=== PATIENT | female | born 1975 | race Caucasian/White ===

== ENCOUNTER 2017-01-17 11:18 | Inpatient (IN) | payer SELFPAY ==
[~2017-01-17] VITALS: Ht 175.3 cm; Wt 73.9 kg
[2017-01-17] MEDS ORDERED: SODIUM CHLORIDE 0.9% 1,000 ML IV ONE (11:44)
[2017-01-17] MEDS ORDERED: CLINDAMYCIN 600MG IV 50 ML IV ONE (11:45)
[2017-01-17] MEDS ORDERED: KETOROLAC TROMETH 30 MG/ML 1ML VIAL IV ONE (11:45)
[2017-01-17 12:20] LABS: Basophils # (auto) 0 uL; Basophils % (auto) 0.6 % (0.0-2.0); Eosinophils # (auto) 0.3 uL; Eosinophils % (auto) 4.1 % (0.0-7.0); Hematocrit 36.9 % (36.0-46.0); Hemoglobin 12.1 g/dL (12.2-16.2); Lymphocytes # (auto) 1.4 uL; Lymphocytes % (auto) 18.4 % (10.0-50.0); Mean Corpuscular Hgb Conc. 32.6 g/dL (32.0-36.0); Mean Corpuscular Volume 85.8 fL (80.0-100.0); Mean Platelet Volume 9.4 fL (7.4-10.4); Monocytes # (auto) 0.5 uL; Neutrophils # (auto) 5.2 uL; Neutrophils % (auto) 69.9 % (37.0-80.0); Platelet Count (auto) 298 10^3/uL (140-450); White Blood Cell 7.4 10^3/uL (4.4-10.8)
[2017-01-17 12:40] LABS: Alkaline Phosphatase 74 U/L (45-117); Anion Gap 12 (5-15); Aspartate Aminotransferase 15 U/L (15-37); BUN/Creatinine Ratio 13.4; Bilirubin, Total < 0.1 mg/dL (0.2-1.0); Blood Urea Nitrogen 11 mg/dL (7-18); Calcium 8.6 mg/dL (8.5-10.1); Carbon Dioxide 27 mmol/L (21-32); Chloride 103 mmol/L (98-107); GFR African American 98 mL/min; GFR Non-African American 81 mL/min; Glucose 104 mg/dL (74-106); Magnesium 2.3 mg/dL (1.6-2.6); Potassium 3.7 mmol/L (3.5-5.1); Sodium 142 mmol/L (136-145); Total Protein 7.2 g/dL (6.4-8.2)
[2017-01-17] MEDS: SODIUM CHLORIDE 0.9% 1,000 ML IV SCH ×2 (13:53→19:33)
[2017-01-17] MEDS ORDERED: LACTULOSE 20Gm/30ML SOLN PO PRN (14:00)
[2017-01-17] MEDS ORDERED: ACETAMINOPHEN 500 MG TAB PO PRN (14:00)
[2017-01-17] MEDS: CLINDAMYCIN 600MG IV 50 ML IV SCH ×2 (14:00→19:32)
[2017-01-17] MEDS ORDERED: PROMETHAZINE HCL 25 MG/ML 1ML IV PRN (14:00)
[2017-01-17] MEDS ORDERED: TEMAZEPAM 15 MG CAP PO PRN (14:00)
[2017-01-17] MEDS ORDERED: LORazepam 0.5 MG TAB PO PRN (14:00)
[2017-01-17] MEDS ORDERED: cefTRIAXone 1GM/50ML D5W 50 ML IV ONE (14:30)
[2017-01-17] MEDS ORDERED: ENOXAPARIN SOD 40 MG/0.4 ML SYRINGE SC ONE (14:30)
[2017-01-17] MEDS: HYDROcodone-ACET 5/325MG TAB PO PRN (18:32)
[2017-01-17 22:07] VITALS: BP 113/59
[2017-01-18] VITALS (7 sets, daily range): BP systolic 87–98; BP diastolic 41–60
[2017-01-18] MEDS: HYDROcodone-ACET 5/325MG TAB PO PRN ×3 (04:41→22:07)
[2017-01-18] MEDS: CLINDAMYCIN 600MG IV 50 ML IV SCH ×3 (04:41→22:04)
[2017-01-18 07:23] LABS: Basophils # (auto) 0 uL; Basophils % (auto) 0.7 % (0.0-2.0); Eosinophils # (auto) 0.3 uL; Eosinophils % (auto) 4.9 % (0.0-7.0); Hematocrit 32.2 % (36.0-46.0); Hemoglobin 10.2 g/dL (12.2-16.2); Lymphocytes # (auto) 1.9 uL; Lymphocytes % (auto) 27.4 % (10.0-50.0); Mean Corpuscular Hemoglobin 27.6 pg (28.0-32.0); Mean Corpuscular Hgb Conc. 31.8 g/dL (32.0-36.0); Mean Corpuscular Volume 86.9 fL (80.0-100.0); Mean Platelet Volume 9.1 fL (7.4-10.4); Monocytes # (auto) 0.7 uL; Neutrophils # (auto) 3.9 uL; Platelet Count (auto) 248 10^3/uL (140-450); Red Cell Distribution Width 15.7 % (11.6-16.0); White Blood Cell 6.8 10^3/uL (4.4-10.8)
[2017-01-18] MEDS ORDERED: cefTRIAXone 1GM/50ML D5W 50 ML IV SCH (09:00)
[2017-01-18] MEDS: cefTRIAXone 1GM/50ML D5W 50 ML IV SCH (09:29)
[2017-01-18] MEDS: SODIUM CHLORIDE 0.9% 1,000 ML IV SCH ×3 (09:29→20:33)
[2017-01-18] MEDS: ENOXAPARIN SOD 40 MG/0.4 ML SYRINGE SC SCH (09:30)
[2017-01-18] MEDS ORDERED: SODIUM CHLORIDE 0.9% 1,000 ML IV ONE (11:45)
[2017-01-18 12:51] LABS: INR 0.97 (0.9-1.15)
[2017-01-18] MEDS: MORPHINE SULF INJ 2 MG/ML SYRINGE 1ML IV PRN ×2 (13:02→18:27)
[2017-01-19] VITALS (7 sets, daily range): BP systolic 76–143; BP diastolic 43–70
[2017-01-19] MEDS: SODIUM CHLORIDE 0.9% 1,000 ML IV SCH ×4 (03:13→23:20)
[2017-01-19] MEDS: MORPHINE SULF INJ 2 MG/ML SYRINGE 1ML IV PRN ×2 (05:00→16:26)
[2017-01-19] MEDS: CLINDAMYCIN 600MG IV 50 ML IV SCH (05:40)
[2017-01-19 05:52] LABS: Basophils # (auto) 0 uL; Basophils % (auto) 0.8 % (0.0-2.0); Eosinophils # (auto) 0.3 uL; Eosinophils % (auto) 5.6 % (0.0-7.0); Hematocrit 33.2 % (36.0-46.0); Hemoglobin 10.5 g/dL (12.2-16.2); Lymphocytes # (auto) 2.3 uL; Lymphocytes % (auto) 36.5 % (10.0-50.0); Mean Corpuscular Hemoglobin 27.5 pg (28.0-32.0); Mean Corpuscular Hgb Conc. 31.8 g/dL (32.0-36.0); Mean Corpuscular Volume 86.6 fL (80.0-100.0); Mean Platelet Volume 9.1 fL (7.4-10.4); Monocytes # (auto) 0.7 uL; Monocytes % (auto) 10.7 % (0.0-12.0); Neutrophils # (auto) 2.9 uL; Neutrophils % (auto) 46.4 % (37.0-80.0); Platelet Count (auto) 278 10^3/uL (140-450); Red Cell Distribution Width 15.5 % (11.6-16.0); White Blood Cell 6.2 10^3/uL (4.4-10.8)
[2017-01-19] MEDS: cefTRIAXone 1GM/50ML D5W 50 ML IV SCH (09:02)
[2017-01-19] MEDS: HYDROcodone-ACET 5/325MG TAB PO PRN ×2 (09:02→20:05)
[2017-01-19] MEDS: ENOXAPARIN SOD 40 MG/0.4 ML SYRINGE SC SCH (11:02)
[2017-01-19] MEDS ORDERED: VANCOMYCIN PER PHARMACY 0 MG IV SCH (13:15)
[2017-01-19] MEDS ORDERED: NICOTINE 21MG/24 HR TOPICAL PATCH TD ONE (13:30)
[2017-01-19] MEDS ORDERED: VANCOMYCIN 1GM/250ML D5W 250 ML IV ONE (14:00)
[2017-01-19 15:03] LABS: BUN/Creatinine Ratio 14.8; Calcium 7.8 mg/dL (8.5-10.1); Potassium 4.3 mmol/L (3.5-5.1)
[2017-01-20] VITALS (7 sets, daily range): BP systolic 80–134; BP diastolic 43–71
[2017-01-20] MEDS: VANCOMYCIN 1GM/250ML D5W 250 ML IV SCH ×2 (04:08→16:38)
[2017-01-20] MEDS: SODIUM CHLORIDE 0.9% 1,000 ML IV SCH ×3 (05:59→18:35)
[2017-01-20 07:08] LABS: Basophils # (auto) 0 uL; Basophils % (auto) 0.7 % (0.0-2.0); Eosinophils # (auto) 0.3 uL; Eosinophils % (auto) 4.5 % (0.0-7.0); Hematocrit 33.3 % (36.0-46.0); Hemoglobin 10.7 g/dL (12.2-16.2); Lymphocytes # (auto) 1.9 uL; Lymphocytes % (auto) 29.2 % (10.0-50.0); Mean Corpuscular Hemoglobin 27.6 pg (28.0-32.0); Mean Corpuscular Hgb Conc. 32.1 g/dL (32.0-36.0); Mean Corpuscular Volume 86.2 fL (80.0-100.0); Mean Platelet Volume 9.1 fL (7.4-10.4); Monocytes # (auto) 0.6 uL; Monocytes % (auto) 8.8 % (0.0-12.0); Neutrophils # (auto) 3.8 uL; Neutrophils % (auto) 56.8 % (37.0-80.0); Platelet Count (auto) 271 10^3/uL (140-450); Red Cell Distribution Width 15.3 % (11.6-16.0); White Blood Cell 6.7 10^3/uL (4.4-10.8)
[2017-01-20 07:15] LABS: INR 0.98 (0.9-1.15); Prothrombin Time 10.1 sec (9.37-12.3)
[2017-01-20 07:39] LABS: Calcium 8.1 mg/dL (8.5-10.1); Magnesium 2.4 mg/dL (1.6-2.6)
[2017-01-20 07:55] LABS: BUN/Creatinine Ratio 16.3
[2017-01-20] MEDS: cefTRIAXone 1GM/50ML D5W 50 ML IV SCH (08:17)
[2017-01-20] MEDS: HYDROcodone-ACET 5/325MG TAB PO PRN ×3 (08:17→21:12)
[2017-01-20] MEDS: ENOXAPARIN SOD 40 MG/0.4 ML SYRINGE SC SCH (10:44)
[2017-01-20] MEDS: NICOTINE 21MG/24 HR TOPICAL PATCH TD SCH (10:45)
[2017-01-20] MEDS: MORPHINE SULF INJ 2 MG/ML SYRINGE 1ML IV PRN (11:01)
[2017-01-21] MEDS: SODIUM CHLORIDE 0.9% 1,000 ML IV SCH ×4 (01:45→23:27)
[2017-01-21 03:08] LABS: Basophils # (auto) 0.1 uL; Basophils % (auto) 0.8 % (0.0-2.0); Eosinophils # (auto) 0.4 uL; Eosinophils % (auto) 5.3 % (0.0-7.0); Hematocrit 32.4 % (36.0-46.0); Hemoglobin 10.5 g/dL (12.2-16.2); Lymphocytes # (auto) 2.1 uL; Lymphocytes % (auto) 31.5 % (10.0-50.0); Mean Corpuscular Hemoglobin 27.6 pg (28.0-32.0); Mean Corpuscular Hgb Conc. 32.3 g/dL (32.0-36.0); Mean Corpuscular Volume 85.3 fL (80.0-100.0); Mean Platelet Volume 8.6 fL (7.4-10.4); Monocytes # (auto) 0.6 uL; Monocytes % (auto) 8.9 % (0.0-12.0); Neutrophils # (auto) 3.6 uL; Neutrophils % (auto) 53.5 % (37.0-80.0); Platelet Count (auto) 267 10^3/uL (140-450); Red Cell Distribution Width 15.1 % (11.6-16.0); White Blood Cell 6.8 10^3/uL (4.4-10.8)
[2017-01-21 03:23] LABS: INR 0.96 (0.9-1.15); Prothrombin Time 9.9 sec (9.37-12.3)
[2017-01-21 03:28] LABS: Calcium 7.7 mg/dL (8.5-10.1)
[2017-01-21] MEDS: VANCOMYCIN 1GM/250ML D5W 250 ML IV SCH (04:00)
[2017-01-21 05:00] VITALS: BP 92/56
[2017-01-21 08:00] VITALS: BP 91/44
[2017-01-21 08:07] VITALS: BP 91/44
[2017-01-21] MEDS: ENOXAPARIN SOD 40 MG/0.4 ML SYRINGE SC SCH (09:43)
[2017-01-21] MEDS: cefTRIAXone 1GM/50ML D5W 50 ML IV SCH (09:43)
[2017-01-21] MEDS: HYDROcodone-ACET 5/325MG TAB PO PRN ×2 (09:44→18:03)
[2017-01-21] MEDS: NICOTINE 21MG/24 HR TOPICAL PATCH TD SCH (10:00)
[2017-01-21 12:55] VITALS: BP 101/59
[2017-01-21] MEDS: MORPHINE SULF INJ 2 MG/ML SYRINGE 1ML IV PRN ×2 (13:20→20:40)
[2017-01-21] MEDS ORDERED: VANCOMYCIN 1,250 MG in D5W 5% 250 ML IV SCH (16:00)
[2017-01-21 17:57] VITALS: BP 96/59
[2017-01-21 21:46] VITALS: BP 128/71
[2017-01-22 05:11] VITALS: BP 108/75
[2017-01-22] MEDS: HYDROcodone-ACET 5/325MG TAB PO PRN ×3 (05:11→22:07)
[2017-01-22] MEDS: SODIUM CHLORIDE 0.9% 1,000 ML IV SCH ×4 (05:11→22:06)
[2017-01-22 08:00] VITALS: BP 93/56
[2017-01-22 08:41] VITALS: BP 93/56
[2017-01-22] MEDS: cefTRIAXone 1GM/50ML D5W 50 ML IV SCH (09:25)
[2017-01-22] MEDS: ENOXAPARIN SOD 40 MG/0.4 ML SYRINGE SC SCH (10:59)
[2017-01-22] MEDS: NICOTINE 21MG/24 HR TOPICAL PATCH TD SCH (11:02)
[2017-01-22 13:00] VITALS: BP 93/56
[2017-01-22 16:44] VITALS: BP 98/54
[2017-01-22 21:36] VITALS: BP 109/60
[2017-01-23 03:37] LABS: Basophils # (auto) 0 uL; Basophils % (auto) 0.8 % (0.0-2.0); Eosinophils # (auto) 0.4 uL; Hemoglobin 10.1 g/dL (12.2-16.2); Lymphocytes # (auto) 2.3 uL; Lymphocytes % (auto) 35.8 % (10.0-50.0); Mean Corpuscular Hemoglobin 27.5 pg (28.0-32.0); Mean Corpuscular Hgb Conc. 31.7 g/dL (32.0-36.0); Mean Corpuscular Volume 86.8 fL (80.0-100.0); Mean Platelet Volume 9.1 fL (7.4-10.4); Monocytes # (auto) 0.5 uL; Monocytes % (auto) 8.2 % (0.0-12.0); Neutrophils # (auto) 3.1 uL; Neutrophils % (auto) 49.2 % (37.0-80.0); Platelet Count (auto) 268 10^3/uL (140-450); Red Cell Distribution Width 15.9 % (11.6-16.0); White Blood Cell 6.3 10^3/uL (4.4-10.8)
[2017-01-23 05:19] VITALS: BP 106/65
[2017-01-23] MEDS ORDERED: LIDOCAINE 1% HCL (LOCAL ANESTH.) INJ 20ML MDV IJ ONE (07:30)
[2017-01-23] MEDS: cefTRIAXone 1GM/50ML D5W 50 ML IV SCH (09:00)
[2017-01-23 09:07] VITALS: BP 82/41
[2017-01-23] MEDS ORDERED: LEVO500T3 PO (11:15)
[2017-01-23] MEDS ORDERED: SACC250C PO (11:15)
[2017-01-23] MEDS: NICOTINE 21MG/24 HR TOPICAL PATCH TD SCH (11:31)
[2017-01-23] MEDS: HYDROcodone-ACET 5/325MG TAB PO PRN (11:58)
[2017-01-23 12:39] VITALS: BP 116/67
== END 2017-01-23 14:27 | disposition home or self-care (01) | DRG 571 ==
LOC: ER 11:18 → OVERFLOW 11:19 → EAST 17:02 → CENTRAL 18:41
PROVIDERS: ADMIT Internal Medicine; ATTEND Internal Medicine
PROC: 0JBP0ZZ Excision of Left Lower Leg Subcutaneous Tissue and Fascia, Open Approach (ICD-10-PCS; principal; 2017-01-23)
DX: S91.302A Unspecified open wound, left foot, initial encounter (principal); L03.116 Cellulitis of left lower limb; L97.829 Non-pressure chronic ulcer of other part of left lower leg with unspecified severity; F17.210 Nicotine dependence, cigarettes, uncomplicated; D63.8 Anemia in other chronic diseases classified elsewhere; X58.XXXA Exposure to other specified factors, initial encounter; B95.61 Methicillin susceptible Staphylococcus aureus infection as the cause of diseases classified elsewhere; Z90.89 Acquired absence of other organs; Z88.5 Allergy status to narcotic agent; Y93.89 Activity, other specified; Y92.89 Other specified places as the place of occurrence of the external cause; Y99.8 Other external cause status; Z71.6 Tobacco abuse counseling
CPT/HCPCS: 36415; 73590; 73718; 80048; 80053; 80202; 83540; 83550; 83735; 85025; 85610; 85652; 87040; 87077; 87186; 87205; 93926; 94761; 96361; 96365; 96366; 96367; 96375; J0696; J1885; J2001; J3490

== ENCOUNTER → 2020-02-12 | Emergency (ER) | payer MEDICAID ==
[~2020-02-12] VITALS: Ht 165.1 cm; Wt 79.8 kg
[~2020-02-12] MED LIST: ALBUTEROL SULF 2.5 MG/0.5ML(0.5%) NEB SOLN NEB ONE; IPRATROPIUM BROM 0.5 MG/2.5ML INH SOL NEB ONE; LEVO500T21 PO; SACC250C PO; levoFLOXacin 750MG 150 ML IV ONE; methylPREDNISolone SOD SUCC 125 MG/2 ML VL IV ONE
[2020-02-12 22:26] LABS: Albumin 2.8 g/dL (3.4-5.0); Anion Gap 6 (5-15); Blood Urea Nitrogen 11 mg/dL (7-18); Calcium 7.5 mg/dL (8.5-10.1); Carbon Dioxide 21 mmol/L (21-32); Chloride 114 mmol/L (98-107); Glucose 105 mg/dL (74-106); Potassium 3.2 mmol/L (3.5-5.1); Sodium 141 mmol/L (136-145)
[2020-02-12 22:31] LABS: Alanine Aminotransferase 15 U/L (13-56); Alkaline Phosphatase 56 U/L (45-117); Aspartate Aminotransferase 15 U/L (15-37); BUN/Creatinine Ratio 16.2; Bilirubin, Total < 0.1 mg/dL (0.2-1.0); GFR African American 120 mL/min; GFR Non-African American 99 mL/min; Total Protein 6.3 g/dL (6.4-8.2)
[2020-02-12 23:19] LABS: Basophils # (auto) 0 10 ^3/uL (0-0.2); Basophils % (auto) 0.7 % (0.0-2.0); Eosinophils # (auto) 0.1 10 ^3/uL (0-0.8); Eosinophils % (auto) 1.8 % (0.0-7.0); Hematocrit 34.4 % (36.0-46.0); Hemoglobin 11.5 g/dL (12.2-16.2); Lymphocytes # (auto) 1.9 10 ^3/uL (0.4-5.4); Lymphocytes % (auto) 30.6 % (10.0-50.0); Mean Corpuscular Hemoglobin 28.8 pg (28.0-32.0); Mean Corpuscular Hgb Conc. 33.3 g/dL (32.0-36.0); Mean Corpuscular Volume 86.6 fL (80.0-100.0); Monocytes # (auto) 0.7 10 ^3/uL (0-1.3); Monocytes % (auto) 10.3 % (0.0-12.0); Neutrophils # (auto) 3.6 10 ^3/uL (1.6-8.6); Neutrophils % (auto) 56.6 % (37.0-80.0); Nucleated Red Blood Cells % 0.1 %; Platelet Count (auto) 224 10^3/uL (140-450); Red Blood Cells 3.97 10^6/uL (4.0-5.20); Red Cell Distribution Width 14.1 % (11.8-14.3); White Blood Cell 6.3 10^3/uL (4.4-10.8)
[2020-02-13 01:07] VITALS: BP 95/45
== END | disposition home or self-care (01) ==
LOC: ER 20:58
DX: J06.9 Acute upper respiratory infection, unspecified (principal); F17.210 Nicotine dependence, cigarettes, uncomplicated
CPT/HCPCS: 36415; 71045; 80053; 83605; 84484; 85025; 87040; 87804; 93005; 94640; 96365; 96366; 96375; 99285; J1956; J2930; J7030; J7644

== ENCOUNTER 2020-03-01 10:41 | Emergency (ER) | payer MEDICAID ==
[~2020-03-01] VITALS: Ht 175.3 cm; Wt 68.0 kg
[~2020-03-01 10:41] MED LIST changes: -ALBUTEROL SULF 2.5 MG/0.5ML(0.5%) NEB SOLN NEB ONE; -IPRATROPIUM BROM 0.5 MG/2.5ML INH SOL NEB ONE; -levoFLOXacin 750MG 150 ML IV ONE; -methylPREDNISolone SOD SUCC 125 MG/2 ML VL IV ONE
[2020-03-01] MEDS ORDERED: SODIUM CHLORIDE 0.9% 1,000 ML IV ONE (10:51)
[2020-03-01] MEDS ORDERED: ONDANSETRON HCL 4 MG/2 ML VIAL IV ONE (11:00)
[2020-03-01] MEDS ORDERED: MORPHINE SULF INJ 2 MG/ML SYRINGE 1ML IV ONE (11:00)
[2020-03-01 11:18] LABS: Basophils # (auto) 0 10 ^3/uL (0-0.2); Basophils % (auto) 0.8 % (0.0-2.0); Eosinophils # (auto) 0.1 10 ^3/uL (0-0.8); Eosinophils % (auto) 2.4 % (0.0-7.0); Hematocrit 37.1 % (36.0-46.0); Hemoglobin 11.8 g/dL (12.2-16.2); Lymphocytes # (auto) 1.5 10 ^3/uL (0.4-5.4); Lymphocytes % (auto) 28.8 % (10.0-50.0); Mean Corpuscular Hemoglobin 27.3 pg (28.0-32.0); Mean Corpuscular Hgb Conc. 31.8 g/dL (32.0-36.0); Mean Corpuscular Volume 86.1 fL (80.0-100.0); Monocytes # (auto) 0.5 10 ^3/uL (0-1.3); Monocytes % (auto) 9.1 % (0.0-12.0); Neutrophils # (auto) 3.1 10 ^3/uL (1.6-8.6); Neutrophils % (auto) 58.9 % (37.0-80.0); Nucleated Red Blood Cells % 0.1 %; Platelet Count (auto) 249 10^3/uL (140-450); Red Blood Cells 4.31 10^6/uL (4.0-5.20); Red Cell Distribution Width 15.1 % (11.8-14.3); White Blood Cell 5.3 10^3/uL (4.4-10.8)
[2020-03-01 11:37] LABS: Albumin 3.4 g/dL (3.4-5.0); Anion Gap 7 (5-15); Blood Urea Nitrogen 10 mg/dL (7-18); Calcium 8.7 mg/dL (8.5-10.1); Carbon Dioxide 25 mmol/L (21-32); Chloride 108 mmol/L (98-107); Glucose 94 mg/dL (74-106); Potassium 3.5 mmol/L (3.5-5.1); Sodium 140 mmol/L (136-145)
[2020-03-01 11:43] LABS: Alanine Aminotransferase 17 U/L (13-56); Alkaline Phosphatase 64 U/L (45-117); Aspartate Aminotransferase 17 U/L (15-37); BUN/Creatinine Ratio 12.7; Bilirubin, Total 0.3 mg/dL (0.2-1.0); GFR African American 101 mL/min; GFR Non-African American 84 mL/min; Total Protein 7.3 g/dL (6.4-8.2)
[2020-03-01] MEDS ORDERED: MORPHINE SULFATE 4 MG/ML SYR/VIAL IV ONE (12:15)
[2020-03-01] MEDS ORDERED: PANTOPRAZOLE 40 MG/10 ML VIAL INJ IV ONE (12:15)
[2020-03-01 12:19] LABS: Amphetamine Screen, Urine POSITIVE (NEGATIVE); Barbiturate Scree,Urine NEGATIVE (NEGATIVE); Benzodiazephine Screen, Urine NEGATIVE (NEGATIVE); Cannabinoid Screen, Urine NEGATIVE (NEGATIVE); Cocaine Screen, Urine NEGATIVE (NEGATIVE); Opiate Scree,Urine NEGATIVE (NEGATIVE); Phencyclidine Screen, Urine NEGATIVE (NEGATIVE)
[2020-03-01 13:44] VITALS: BP 106/54
== END 2020-03-01 14:53 | disposition other institution (70) ==
LOC: ER 10:41
DX: I24.9 Acute ischemic heart disease, unspecified (principal); F15.10 Other stimulant abuse, uncomplicated; F17.210 Nicotine dependence, cigarettes, uncomplicated; Z88.5 Allergy status to narcotic agent
CPT/HCPCS: 36415; 71045; 76705; 80053; 80307; 84484; 85025; 85379; 87070; 87205; 87804; 87880; 93005; 96374; 96375; 96376; 99285; C9113; J2270; J2405; J7030